=== PATIENT | female | born 1960 | race Caucasian/White ===

== ENCOUNTER → 2022-02-20 09:51 | Outpatient (CLI) | payer BC, SELFPAY ==
--- NOTE | ~2022-02-20 | MR_ITS ---
EXAMINATION: MR lumbar spine wo con DATE: 02/20/2022 10:25 INDICATION: Low back pain. Lumbar degenerative disc disease. TECHNIQUE: Magnetic resonance imaging (MRI) of the lumbar spine was performed without intravenous con trast. Sequences included sagittal T2-weighted FSE, sagittal T2-weighted FS FSE, sagittal T1-weighted FSE, and axial T2-weighted FSE. COMPARISON: None FINDINGS: Bone alignment is normal. Vertebral body heights are normal. There is mildly decreased disc height at L2-L3 and L3-L4 and moderately decreased disc height at L4-L5. The distal spinal cord sign al intensity is normal. The conus medullaris is at L1. The following disc levels are specifically dis cussed: L1-L2: The disc does not extend beyond the endplate margin. There is mild bilateral facet joint osteo arthritis. There is no neural foraminal stenosis. There is no central canal stenosis. L2-L3: The disc is bulging and has an annular fissure. There is mild bilateral facet joint osteoarthr itis. There is mild bilateral neural foraminal stenosis. There is mild central canal stenosis. L3-L4: The disc is bulging and has an annular fissure. There is moderate right and severe left facet joint osteoarthritis. There is mild bilateral neural foraminal stenosis. There is mild central canal stenosis. L4-L5: The disc is bulging. There is mild bilateral facet joint osteoarthritis. There is mild bilater al neural foraminal stenosis. There is mild central canal stenosis. L5-S1: The disc does not extend beyond the endplate margin. There is mild bilateral facet joint osteo arthritis. There is no neural foraminal stenosis. There is no central canal stenosis. IMPRESSION: 1. Moderate lumbar spondylosis. Reviewed, dictated and finalized at location A.
== END ==
PROVIDERS: Visit Provider Physician Assistant
DX: M51.36 Other intervertebral disc degeneration, lumbar region (principal); M47.27 Other spondylosis with radiculopathy, lumbosacral region; M48.07 Spinal stenosis, lumbosacral region
CPT/HCPCS: 72148

== ENCOUNTER 2022-03-02 09:41 | Emergency (ER) | payer BC, SELFPAY ==
--- NOTE | ~2022-03-02 | CT_ITS ---
EXAMINATION: CT abdomen pelvis w con DATE: 03/02/2022 11:06 INDICATION: Right lower quadrant abdominal pain. Low back pain. Diarrhea. TECHNIQUE: Computed tomography (CT) of the abdomen and pelvis was performed with 100 mL Omnipaque 350 intravenous contrast. Automated exposure control and iterative reconstruction technique were employe d. The dose-length product was 236.31 mGy-cm. COMPARISON: None. FINDINGS: The visualized portions of the lung bases demonstrate mild atelectasis. No pleural effusion . The heart size is normal. No pericardial effusion. There are 2 cysts in the liver measuring up to 5 mm. The gallbladder, spleen, pancreas, adrenal glands, and right kidney are normal. There is a 4 mm cyst in left kidney. The rectum is distended, likely adynamic ileus. There is liquid stool in the col on correlating with the symptom of diarrhea. The appendix is normal. The terminal ileum is normal. Th ere are no pathologically enlarged lymph nodes. There is no free intraperitoneal fluid. There is mild lumbar spondylosis. IMPRESSION: 1. Distended rectum, likely adynamic ileus. Reviewed, dictated and finalized at location A.
[2022-03-02 09:42] VITALS: BP 125/85; PULSE 91; RESP 18; TEMP 36.3; O2SAT 99
--- NOTE | 2022-03-02 09:58 | ED.BACK ---
HPI - Back Pain/Injury General Chief Complaint: Back Pain/Injury <Tegan Laguna PA-C - Last Filed: 03/02/22 12:47> Stated Complaint: lower back pain, right side groin pain <RITO Mcgarry Last Filed: 03/02/22 12:47> Time Seen by Provider: 03/02/22 09:50 <RITO Mcgarry Last Filed: 03/02/22 12:47> Source: patient <RITO Mcgarry Last Filed: 03/02/22 12:47> Mode of arrival: ambulatory <RITO Mcgarry Last Filed: 03/02/22 12:47> Limitations: no limitations <RITO Mcgarry Last Filed: 03/02/22 12:47> History of Present Illness HPI Narrative: This is a 61-year-old female that presents to the emergency department for feeling generally unwell. Reports she has not been feeling good last couple of weeks. Reports she has had low back pain and right lower quadrant pain. She also reports she has had nausea and diarrhea. Reports history of ulcerative colitis. She follows with a structural iron worker at [facility]. Denies any recent injuries or trauma. No alleviating or exacerbating factors. Reports she was seen at urgent care a couple of days ago. She was started on cefdinir. Her culture ended up coming back negative though, so she has stopped this antibiotic. Denies fever, vomiting, dysuria, hematuria. <Tegan Laguna PA-C - Last Filed: 03/02/22 12:47> Related Data Allergies/Adverse Reactions: Allergies Allergy/AdvReac Type Severity Reaction Status Date / Time No Known Allergies Allergy Verified 03/02/22 11:20 <RITO Mcgarry Last Filed: 03/02/22 12:47> Review of Systems Review of Systems: CONSTITUTIONAL: Denies fever GASTROINTESTINAL: Reports abdominal pain, nausea, and diarrhea. Denies vomiting GENITOURINARY: Denies dysuria or hematuria. <RITO Mcgarry Last Filed: 03/02/22 12:47> All systems reviewed & are unremarkable except as noted in HPI and below <Tegan Laguna PA-C - Last Filed: 03/02/22 12:47> PMFSH Past Medical History Medical History: Medical History (Updated 03/02/22 @ 12:41 by Tegan Laguna PA-C) History of fibromyalgia History of ulcerative colitis <Tegan Laguna PA-C - Last Filed: 03/02/22 12:47> Social History Social History: Social History (Updated 03/02/22 @ 10:00 by Tegan Laguna PA-C) Smoking status: Former smoker Substance use: never <Tegan Laguna PA-C - Last Filed: 03/02/22 12:47> Exam Narrative: GENERAL: Well-appearing, well-nourished, and in no acute distress. HEAD: Normocephalic, atraumatic. EYES: EOMI. CHEST: Clear to auscultation. No respiratory distress. No wheezes rales or rhonchi HEART: Regular rate and rhythm. No murmur heard. Normal peripheral pulses. ABDOMEN: Soft, nondistended, normal active bowel sounds. Mild tenderness to palpation throughout the lower abdomen, without guarding. No CVA tenderness EXTREMITIES: Normal range of motion. No edema. SKIN: Warm, dry, no rash. NEURO: No focal deficits. Alert and oriented x3. PSYCH: Normal mood and affect <Tegan Laguna PA-C - Last Filed: 03/02/22 12:47> Course MANAGER FRENCH/PA Physician Supervision For this patient encounter, I reviewed the MANAGER FRENCH or PA documentation, treatment plan, and medical decision making <Franck Booker MD - Last Filed: 03/02/22 13:44> Vital Signs Vital signs: Vital Signs Temperature 97.3 F L 03/02/22 09:42 Pulse Rate 91 03/02/22 09:42 Respiratory Rate 18 03/02/22 09:42 Blood Pressure 125/85 03/02/22 09:42 Pulse Oximetry 99 03/02/22 09:42 Oxygen Delivery Room Air 03/02/22 09:42 Temperature 97.3 F L 03/02/22 09:42 Pulse Rate 91 03/02/22 09:42 Respiratory Rate 18 03/02/22 09:42 Blood Pressure 125/85 03/02/22 09:42 Pulse Oximetry 99 1015/22 09:42 Oxygen Delivery Room Air 03/02/22 09:42 <Tegan Laguna PA-C - Last Filed: 03/02/22 12:47> Vital Signs Temperature 97.3 F L 03/02/22 09:42 Pulse Rate 91 10
[2022-03-02 10:25] LABS: Basophils Percent Auto 0.3 % (0.2-1.2); Eosinophils Absolute Auto 0.1 K/mm3 (0-0.3); Eosinophils Percent Auto 0.9 % (0-4.4); Hematocrit 43.5 % (37.0-47.0); Hemoglobin 14.9 g/dL (12.0-15.0); Immature Granulocyte Absolute 0.02 K/mm3 (0.00-0.031); Immature Granulocyte Percent A 0.2 % (0-0.5); Mean Corpuscular HGB Conc 34.3 g/dl (32-36); Mean Corpuscular Volume 96.2 fl (80-100); Mean Platelet Volume 9.8 fl (7.4-10.4); Monocytes Absolute Auto 0.7 K/mm3 (0.1-0.6); Monocytes Percent Auto 7.4 % (2.6-8.5); Neutrophils Absolute Auto 8.3 K/mm3 (1.3-6.7); Neutrophils Percent Auto 83.2 % (45.5-73.1); Platelet Count Result 312 k/mm3 (150-375); Red Blood Count 4.52 M/mm3 (4.2-5.4); Red Cell Distribution Width 12.5 % (11.5-14.5); White Blood Count 9.9 K/mm3 (4.5-10.0)
[2022-03-02 10:33] LABS: Add Urine Microscopic? YES; Appearance Urine Cloudy (Clear); Bilirubin Urine Negative (Negative); Blood Urine Negative (Negative); Budding Yeast Urine Present /hpf; Calcium Oxalate Crystals Urine Present /hpf; Color Urine Yellow (Yellow); Glucose Urine UA Negative (Negative); Ketones Urine Trace mg/dL (Negative); Leukocyte Esterase Ur Negative LEU/UL (Negative); Mucus Urine Rare /lpf; Nitrate Urine Negative (Negative); Protein Urine Negative (Negative); RBC Urine 51-75 /hpf (0-2); Specific Grav Ur 1.018 (1.001-1.035); Squamous Epithelial Cell Urine Rare /hpf (Few); Urobilinogen Urine Negative mg/dL (<2.0)
[2022-03-02 10:37] LABS: Alanine Aminotransferase 35 U/L (6-35); Albumin Level 4.6 g/dL (3.5-5.1); Alkaline Phosphatase 68 U/L (38-126); Anion Gap 8 mmol/L (8-16); Aspartate Amino Transferase 37 U/L (14-36); Bilirubin,Total 0.5 mg/dL (0.2-1.3); Blood Urea Nitrogen 11 mg/dL (7-17); Calcium 9.8 mg/dL (8.4-10.2); Carbon Dioxide 28 mmol/L (22-30); Chloride 102 mmol/L (98-107); Estimated CRCL calculation 51 ml/min; Estimated Glomerular Filt Rate > 60; Glucose 96 mg/dL (65-110); Lipase 108 U/L (23-300); Potassium 4.2 mmol/L (3.4-5.0); Sodium 138 mmol/L (137-145)
[2022-03-02] MEDS: ONDANSETRON INJ 4 MG/2 ML VIAL IV PUSH (10:54)
[2022-03-02] MEDS: KETOROLAC 15 MG/ML VIAL (*BKC) IV PUSH (11:43)
[2022-03-02] MEDS: FLUCONAZOLE 150 MG TABLET PO (13:12)
== END 2022-03-02 13:17 | disposition home or self-care (01) ==
PROVIDERS: Physician Assistant; Emergency Provider Emergency Medicine
DX: K56.0 Paralytic ileus (principal)
CPT/HCPCS: 36415; 74177; 80053; 81001; 83690; 85025; 87086; 96365; 96375; 99284; A9270; J0131; J1885; J2405; Q9967

== ENCOUNTER → 2023-02-12 11:02 | Outpatient (CLI) | payer BC, SELFPAY ==
--- NOTE | ~2023-02-12 | XR_ITS ---
EXAMINATION: XR hip BI 2V w AP pelvis DATE: 02/12/2023 11:47 INDICATION: Bilateral hip pain TECHNIQUE: AP view the pelvis and two views of each hip were obtained. COMPARISON: None. FINDINGS: Bone alignment is normal. There is no fracture. There is mild osteoarthritis of the left hi p and moderate osteoarthritis of the right hip. IMPRESSION: 1. Osteoarthritis without acute osseous abnormality. Reviewed, dictated and finalized at location F.
== END ==
PROVIDERS: PCP Physician Assistant; Visit Provider Physician Assistant
DX: M16.0 Bilateral primary osteoarthritis of hip (principal)
CPT/HCPCS: 73521

== ENCOUNTER 2024-12-11 09:52 | Outpatient (CLI) | payer MEDICARE, SELFPAY ==
--- NOTE | ~2024-12-11 | MR_ITS ---
MRI of the cervical spine Clinical History: Degenerative disc disease Technique: Axial T2-weighted and gradient images, and sagittal T1-weighted, T2-weighted, and STIR megha ges were acquired. Findings: There is no fracture or subluxation of the cervical spine. Vertebral bodies maintain normal height and line. No bone marrow signal abnormality seen. C2-C3, there is mild left neural foraminal narrowing related to left facet arthropathy. No right neur al foraminal narrowing. No significant disc bulge or herniation. No canal stenosis or cord compressio n. At C3-C4, there is left facet arthropathy with probable left neural foraminal narrowing. Otherwise, t here is no disc bulge or herniation, spinal canal stenosis or cord compression, or right neural kelsy inal narrowing. At C4-C5, there is minimal disc osteophyte complex. Probable mild left neural foraminal narrowing wit h mild left facet arthropathy. Right neural foramen preserved. No canal stenosis or cord compression. At C5-C6, there is minimal disc osteophyte complex. There is bilateral neural foraminal narrowing, le ft worse than right. There is mild canal stenosis without maru cord compression. At C6-C7, there is no disc bulge or herniation. No spinal canal stenosis, cord compression, or neural foraminal narrowing. No abnormal signal seen in the spinal cord. Paravertebral soft tissues are unremarkable. Impression: Mild degenerative spondylosis overall, as detailed above. Reviewed, dictated and finalized at [facility]. Impression: Mild degenerative spondylosis overall, as detailed above.
== END 2024-12-11 09:53 | disposition home or self-care (01) ==
PROVIDERS: PCP Physician Assistant; Visit Provider Physician Assistant
DX: M50.30 Other cervical disc degeneration, unspecified cervical region (principal); R29.2 Abnormal reflex; M47.892 Other spondylosis, cervical region
CPT/HCPCS: 72141

== ENCOUNTER 2025-02-08 08:50 | Outpatient (CLI) | payer MEDICARE, SELFPAY ==
--- OUTSIDE RECORDS SUMMARY | 2025-02-08 09:19 | XMS_ITS | Clinical Summary ---
Author Organization [facility] Address [address] [place] [address] Care Team Providers Care Wrapping Checker Name Role Phone True Howell DO Primary Care Provider + Source Comments [facility],non-owned Affiliates and Associated Physician Practices is amultiple site organization consisting of ambulatory clinics and hospital sitesin [place], [place], [place] and [place]. This disclosure is being madepursuant to the Care Everywhere program and may not contain all information available regarding this patient. Last updated 18.[facility] [place] Social History Tobacco Use Types Packs/Day Years Used Date Smoking Tobacco: Never Assessed Comments Unknown Sex and Gender Information Value Date Recorded Sex Assigned at Not on file Legal Sex Female 9:06 AM TIE IN HAND Gender Identity Not on file Sexual Orientation Not on file Last Filed Vital Signs Vital Sign Reading Time Taken Comments Blood Pressure 124/76 04/05/2013 8:09 AM TIE IN HAND Pulse 79 04/05/2013 8:09 AM TIE IN HAND Temperature 37.4 C (99.4 F) 04/05/2013 8:09 AM TIE IN HAND Respiratory Rate 22 04/05/2013 8:09 AM TIE IN HAND Oxygen Saturation 97% 04/05/2013 8:09 AM TIE IN HAND Inhaled Oxygen Concentration - - Weight 59.9 kg (132 lb) 04/05/2013 8:09 AM TIE IN HAND Height - - Body Mass Index - - Plan of Treatment Health Maintenance Due Date Last Done Comments BONE DENSITY TESTING 1960 COLOGUARD (AGES 45-75) - COL ON CA SCREENING 1958 COLON MONITORING 1958 COLONOSCOPY - COLON CA SCREENING 1958 CT COLONOGRAPHY - COLON CA SCREENING 1960 Colorectal Cancer Screening 1958 FIT - COLON CA SCREENING 1958 FLEX SIG - COLON CA SCREENING 1958 LIPID TESTING 1958 MAMMOGRAM 1958 HEPATITIS C SCREENING 07/13/1976 DTAP/TDAP/TD VACCINES (1 - Tdap) 1977 PNEUMOCOCCAL VACCINE 50+ (1 of 1 - PCV) 2008 ZOSTER VACCINE (1 of 2) 2008 DEPRESSION SCREENING 05/19/2024 COVID-19 VACCINE (1 - 2023-2 5 season) 2025 INFLUENZA VACCINE (#1) 2025 04/05/2013 Respiratory Syncytial Virus (RSV) Vaccine Pt: or over 60 yrs (1 - 1-dose 75+ series) 2033 HEPATITIS B VACCINE Aged Out No longe r eligible based on patient's age to complete this topic HIB VACCINE Aged Out No longer eligi ble based on patient's age to complete this topic HPV VACCINE Aged Out No longer eligi ble based on patient's age to complete this topic MENINGOCOCCAL (Group B) VACC INE SHARED DECISION-MAKING Aged Out No longer eligibl e based on patient's age to complete this topic MENINGOCOCCAL GROUPS A/C/Y/W VACCINE Aged Out No longer eligible b ased on patient's age to complete this topic Insurance [employer]THE[employer] Care Teams Wrapping Checker Relationship Specialty Start Date End Date True Howell DO [address] [address] PCP - General 05/09/21
--- OUTSIDE RECORDS SUMMARY | 2025-02-08 09:19 | XMS_ITS | Encounter Summary ---
Author Organization [facility] Address [address] [place] [address] Care Team Providers Care Hvac/R Instructor Name Role Phone True Howell DO Primary Care Provider + Encounter Details Date Type Department Care Team (Late st Contact Info) Description 07/16/2023 Lab Requisition [facility] - DermPath Lab [address] [place] [address] [place] [id number] [address] Social History Tobacco Use Types Packs/Day Years Used Date Smoking Tobacco: Never Assessed Comments Unknown Sex and Gender Information Value Date Recorded Sex Assigned at Not on file Legal Sex Female 9:06 AM MEDICAL DOCTOR MD/MEDICAL DIRECTOR Gender Identity Not on file Sexual Orientation Not on file documented as of this encounter Plan of Treatment Not on file documented as of this encounter Procedures Procedure Name Priority Date/Time Associated Diagnosis Comments DERMATOPATHOLOGY Routine 07/15/2023 3:33 AM MEDICAL DOCTOR MD/MEDICAL DIRECTOR documented in this encounter Results * DERMATOPATHOLOGY (07/15/2023 3:33 AM MEDICAL DOCTOR MD/MEDICAL DIRECTOR) Case Report Dermatopathology Report Case: [id number] Authorizing Provider: Yamilet Chapman MD Collected: 07/15/2023 03:33 AM Ordering Location: [facility] DermPath Lab Received: 07/16/2023 01:08 PM Pathologist: Tegan Dash MD Specimen: Skin, right upper back 2:05 PM [facility] DERMATOPATHOLOGY LABORATORY Final Diagnosis Specimen A. SKIN, right upper back: DERMAL SCAR RESIDUAL SQUAMOUS CELL CARCINOMA NOT IDENTIFIED (L90.5) 2:05 PM [facility] DERMATOPATHOLOGY LABORATORY at [address] [facility] Clinical History Scar r/o SCC. Check margins, prior biopsy 2:05 PM [facility] DERMATOPATHOLOGY LABORATORY Gross Description Specimen A: Received is one formalin filled container labeled with the patient's name and designated right upper back.The specimen consists of an ellipse measuring [id number] mm and is oriented with the suture/notch at the 12 o'clock position labeled on the requisition. The 12 to 6 o'clock margin is inked green. The 6 o'clock to 12 o'clock margin is inked red. The 12 o'clock tip is submitted in cassette 1. The 6 o'clock tip is submitted in cassette 2. The remainder of the ellipse is serially sectioned and submitted in cassettes 3-4. Jar 0. 2:05 PM [facility] DERMATOPATHOLOGY LABORATORY Microscopic Description Specimen A. SKIN, right upper back: There are fibroblasts and collagen bundles oriented parallel to the skin surface. There are elongated blood vessels, some of which are oriented perpendicular to the skin surface. No residual squamous cell carcinoma is identified. 2:05 PM [facility] DERMATOPATHOLOGY LABORATORY Disclaimer An external and internal positive and negative controls are appropriate for the histochemical, immunohistochemical and immunofluorescence stain(s) in this case (if any), except where stated explicitly. The performance characteristics of the stain(s) cited in this report were developed and its performance characteristic determined by the Dermatopathology Laboratory at [facility], directed by Dr. June Daigle. These tests need not be, and therefore are not, approved by the [place] Food and Drug Administration. The tests are used for clinical purposes. Billing Codes Specimen Charges Stain Charges 58997 1 2:05 PM [facility] DERMATOPATHOLOGY LABORATORY Embedded Images 2:05 PM [facility] DERMATOPATHOLOGY LABORATORY Pathology/Cytolo gy TISSUE SPECIMEN FROM SKIN / Unknown 07/15/2023 3:33 AM MEDICAL DOCTOR MD/MEDICAL DIRECTOR 07/16/2023 1:08 PM MEDICAL DOCTOR MD/MEDICAL DIRECTOR us Yamilet Harris MD LAB - PATHOLOGY/CYTOLOGY ORDER BRITT Final Result DERMATOPATHOLOGY LABORATORY [facility] - Department of Dermatology [facility] Special[facility] [address] [place] [address], [address] [phone] documented in this encounter Visit Diagnoses Not on filedocumented in this encounter Care Teams Hvac/R Instructor Relationship Specialty Start Date End Date True Howell DO [address] [facility] [address] [place] [address] PCP - General 05/09/21 documented as of this encounter
--- OUTSIDE RECORDS SUMMARY | 2025-02-08 09:19 | XMS_ITS | Encounter Summary ---
Author Organization [facility] Address [address] [place] [address] Care Team Providers Care Photographic Equipment Mechanic Name Role Phone True Howell DO Primary Care Provider + Encounter Details Date Type Department Care Team (Late st Contact Info) Description 05/09/2021 Lab Requisition [facility] Care DermPath Lab [address] [facility] [place] [address] [place] [id number] [address] Social History Tobacco Use Types Packs/Day Years Used Date Smoking Tobacco: Never Assessed Comments Unknown Sex and Gender Information Value Date Recorded Sex Assigned at Not on file Legal Sex Female 9:06 AM FULL STACK SOFTWARE ENGINEER Gender Identity Not on file Sexual Orientation Not on file documented as of this encounter Plan of Treatment Not on file documented as of this encounter Procedures Procedure Name Priority Date/Time Associated Diagnosis Comments DERMATOPATHOLOGY Routine 05/09/2021 12:0 0 AM FULL STACK SOFTWARE ENGINEER documented in this encounter Results * DERMATOPATHOLOGY (05/09/2021 12:00 AM FULL STACK SOFTWARE ENGINEER) Case Report Dermatopathology Report Case: [id number] Authorizing Provider: Yamilet Chapman MD Collected: 05/09/2021 12:00 AM Ordering Location: [facility] Derm[facility] Lab Received: 05/09/2021 01:24 PM Pathologist: Isabella Dash MD Specimens: A) - Skin, right pop lateral B) - Skin, right pop medial 3:15 PM [facility] DERMATOPATHOLOGY LABORATORY Final Diagnosis Specimen A. 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 SKIN, right pop medial: LICHEN SIMPLEX CHRONICUS (L28.0) (see microscopic description and comment) 3:15 PM [facility] DERMATOPATHOLOGY LABORATORY at [address] FULL STACK SOFTWARE ENGINEER Clinical History A-B: LSC, PSO, porokeratosis R/O syringotropic MF. 3:15 PM [facility] DERMATOPATHOLOGY LABORATORY Gross Description Specimen A: Received is one formalin filled container labeled with the patient's name and designated right pop lateral. The specimen consists of a shave biopsy measuring [id number]. Jar 0. Specimen B: Received is one formalin filled container labeled with the patient's name and designated right pop medial. The specimen consists of a shave biopsy measuring [id number], bisected. Jar 0. 3:15 PM [facility] DERMATOPATHOLOGY LABORATORY Microscopic Description Specimen A. SKIN, right pop lateral: Sections show acanthosis, hypergranulosis, and hyperkeratosis. The papillary dermis is fibrotic. The hematoxylin and eosin stain is reviewed; immunohistochemical stains are performed to further assess the histologic features. CD3 highlights rare T cells, composed of both rare CD4+ and rare CD8+ T cells. Grocott's methenamine silver (GMS) stain fails to highlight fungal elements in the available sections. Additional deeper sections were obtained and reviewed. COMMENT (specimens A and B): The histologic features are similar in specimens A and B, and are most consistent with lichen simplex chronicus. The lack of a more significant lymphoid infiltrate as well as the immunophenotype of the lymphoid infiltrate does not support a diagnosis of mycosis fungoides. However, if there is continued clinical concern for mycosis fungoides consideration should be given to a re biopsy of a sun protected area that has not been treated for two to three weeks. Specimen B. SKIN, right pop medial: Sections show acanthosis, hypergranulosis, and hyperkeratosis. The papillary dermis is fibrotic. The hematoxylin and eosin stain is reviewed; immunohistochemical stains are performed to further assess the histologic features. CD3 highlights scattered T cells, that show a CD4:CD8 ratio of approximately 3:1. Grocott's methenamine silver (GMS) stain fails to highlight fungal elements in the available sections. Additional deeper sections were obtained and reviewed. COMMENT: See comment in specimen A. 1 3:15 PM FULL STACK SOFTWARE ENGINEER DERMATOPATHOLOGY LABORATORY Disclaimer An external and internal positive and negative controls are appropriate for the histochemical, immunohistochemical and immunofluorescence stain(s) in this case (if any), except where stated explicitly. The performance characteristics of the stain(s) cited in this report were developed and its performance characteristic determined by the Dermatopathology Laboratory at [facility], directed by Dr. June Daigle. These tests need not be, and therefore are not, approved by the [place] Food and Drug Administration. The tests are used for clinical purposes. Billing Codes Specimen Charges Stain Charges 84521 41728 1 1 [id number] [id number] 26376 54943 59131 09465 10419 96996 1 1 1 1 1 1 1 1 1 3:15 PM FULL STACK SOFTWARE ENGINEER DERMATOPATHOLOGY LABORATORY Embedded Images 1 3:15 PM FULL STACK SOFTWARE ENGINEER DERMATOPATHOLOGY LABORATORY Pathology/Cytology TISSUE SPECIMEN FROM SKIN / Unknown 05/09/2021 05/09/2021 1:24 PM FULL STACK SOFTWARE ENGINEER Miscellaneous samples (specimen) TISSUE SPECIMEN FROM SKIN / Unknown 05/09/2021 05/09/2021 1:24 PM FULL STACK SOFTWARE ENGINEER us Yamilet Harris MD LAB - PATHOLOGY/CYTOLOGY ORDER BRITT Final Result DERMATOPATHOLOGY LABORATORY [facility] - Department of Dermatology [facility] [facility], [address] [place] [address], [facility] [phone] documented in this encounter Visit Diagnoses Not on filedocumented in this encounter Care Teams Photographic Equipment Mechanic Relationship Specialty Start Date End Date True Howell DO [address] [facility] [address] [place] [phone] (work) PCP - General 05/09/21 documented as of this encounter
--- OUTSIDE RECORDS SUMMARY | 2025-02-08 09:19 | XMS_ITS | Encounter Summary ---
Author Organization [facility] Address [address] [place] [address] Care Team Providers Care Trash Collector Name Role Phone True Howell DO Primary Care Provider + Encounter Details Date Type Department Care Team (Late st Contact Info) Description 05/05/[address] [facility] - DermPath Lab [address] [facility] [place] [address] [place] [id number] [address] Social History Tobacco Use Types Packs/Day Years Used Date Smoking Tobacco: Never Assessed Comments Unknown Sex and Gender Information Value Date Recorded Sex Assigned at Not on file Legal Sex Female 9:06 AM [employer] Gender Identity Not on file Sexual Orientation Not on file documented as of this encounter Plan of Treatment Not on file documented as of this encounter Procedures Procedure Name Priority Date/Time Associated Diagnosis Comments DERMATOPATHOLOGY Routine 05/05/2023 3:33 AM [employer] documented in this encounter Results * DERMATOPATHOLOGY (05/05/2023 3:33 AM [employer] A[employer]ST) Case Report Dermatopathology Report Case: [id number] Authorizing Provider: Yamilet Chapman MD Collected: 05/05/2023 03:33 AM Ordering Location: [facility] Received: 05/05/2023 01:20 PM Pathologist: Henny Carpenter MD Specimens: A) - Skin, right medial pop B) - Skin, right upper back 3 4:46 PM [facility] DERMAT[facility]ATH[facility] Final Diagnosis Specimen A. 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 SKIN, right upper back: SQUAMOUS CELL CARCINOMA, WELL DIFFERENTIATED (C44.529) 3 4:46 PM [facility] DERMATOPATHOLOGY [facility]ORAT[facility] at 1646 [employer] Clinical History A: Lentigo R/O Atypia B: PN R/O SCC 3 4:46 PM [facility]ERMATOPATH[facility] Gross Description Specimen A: Received is one formalin filled container labeled with the patient's name and designated right medial pop. The specimen consists of a shave biopsy measuring [id number] mm. Jar 0. Specimen B: Received is one formalin filled container labeled with the patient's name and designated right upper back. The specimen consists of a shave biopsy measuring 13x9x1 mm. Jar 0. 3 4:46 PM [facility]ERMATOPATH[facility] Microscopic Description Specimen A. SKIN, right medial pop: The epidermis shows parakeratosis, full thickness disorderly maturation of keratinocytes, mitoses at different levels, and dyskeratotic cells. There is prominent pigmentation in some of the keratinocytes. Ki-67 immunohistochemical stain reveals a elevated proliferative index throughout the epidermis. MART-1/Melan-A immunohistochemical stain fails to highlight a melanocytic proliferation. Specimen B. SKIN, right upper back: Arising in the epidermis and extending into the dermis there are irregularly shaped aggregates of keratinocytes showing evidence of premature cornification. Additional deeper sections were obtained and reviewed. 3 4:46 PM [facility]ERMATOPATH[facility]Y [facility] Disclaimer An external and internal positive and negative controls are appropriate for the histochemical, immunohistochemical and immunofluorescence stain(s) in this case (if any), except where stated explicitly. The performance characteristics of the stain(s) cited in this report were developed and its performance characteristic determined by the Dermatopathology Laboratory at [facility], directed by Dr. June Daigle. These tests need not be, and therefore are not, approved by the [place] Food and Drug Administration. The tests are used for clinical purposes. Billing Codes Specimen Charges Stain Charges 79438 61304 1 1 24426 21016 1 1 3 4:46 PM [employer] DERMATOPATHOLOGY LABORATORY Embedded Images 3 4:46 PM [employer] DERMATOPATHOLOGY LABORATORY Pathology/Cytology TISSUE SPECIMEN FROM SKIN / Unknown 05/05/2023 3:33 AM [employer] 05/05/2023 1:20 PM [employer] Miscellaneous samples (specimen) TISSUE SPECIMEN FROM SKIN / Unknown 05/05/2023 3:33 AM [employer]ST 05/05/2023 1:20 PM [employer] Yamilet Harris MD LAB - PATHOLOGY/CYTOLOGY ORDER BRITT Final Result DERMATOPATHOLOGY LABORATORY [facility] - Department of Dermatology [facility] [address] [place] [address], [address] [phone] documented in this encounter Visit Diagnoses Not on filedocumented in this encounter Care Teams Trash Collector Relationship Specialty Start Date End Date True Howell DO [address] [facility] [address] [place] [address] PCP - General 05/09/21 documented as of this encounter
--- OUTSIDE RECORDS SUMMARY | 2025-02-08 09:20 | XMS_ITS | Clinical Summary ---
Author Organization [facility] [address] 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 Role Phone Antonieta Cazares MD Primary Care Provider [phone] Mane MILLER MD, Mynor Marin Unavailable [phone] Eleanor Longoria MD Unavailable Allergies No known active allergies Medications ALPRAZolam (XANAX) 0.5 mg tablet TAKE 1 TABLET BY MOUTH 2 TIMES DAILY NEEDED FOR ANXIETY 5 11/23/2018 Active mesalamine (CANASA) 1,000 mg suppository Insert 1,000 mg into the rectum daily 07/17/2018 Active oxyCODONE (ROXICODONE) 15 mg immediate release tablet TK ONE T PO BID 0 12/04/2018 Active oxyCODONE ER (OxyCONTIN) 20 mg 12 hr abuse-deterrent tablet TK 1 T PO BID 05/06/2018 Active tofacitinib (Xeljanz) 10 mg tablet Take 1 tablet by mouth 2 (two) times a day 12/08/2020 Active busPIRone (BUSPAR) 15 mg tablet Take 15 mg by mouth 2 (two) times a day 02/20/2021 Active Active Problems Problem Noted Date Diagnosed Date Right hip pain 03/11/2022 Assessment & Plan (03/11/2022 10:25 AM CDT): C/o recent pain in R hip exacerbated by weight bearing and walking. She notes pain originates in the R low back/SI and wraps around her outer hip and into the inguinal region. No pain with passive ROM of the hip joint and pain is alleviated with offloading the joint. Had MRI of lumbar spine recently and is getting LESI 04/03. Recommend f/u with PM for further evaluation. Cervical radiculopathy 09/20/2020 Assessment & Plan (07/11/2021 12:22 PM HAND BOOTMAKER): MRI cervical spine (02/2020) showed severe bilateral foraminal stenosis. Failed spinal injections, PT, and pain management. Pain management recommends f/u with surgeon for surgical opinion. Saw surgeon who repeated MRI 12/2020 that showed nerve impingement at C6 (L>R) due to foraminal stenosis. Neurosurgeon recommended PT which provided significant relief of patient's symptoms. Continue home exercises. Assessment & Plan (06/05/2021 12:29 PM HAND BOOTMAKER): MRI cervical spine (02/2020) showed severe bilateral foraminal stenosis. Failed spinal injections, PT, and pain management. Pain management recommends f/u with surgeon for surgical opinion. Saw surgeon who repeated MRI 12/2020 that showed nerve impingement at C6 (L>R) due to foraminal stenosis. Neurosurgeon recommended PT which provided significant relief of patient's symptoms. Continue home exercises. Assessment & Plan (03/06/2021 10:00 AM CDT): MRI cervical spine (02/2020) showed severe bilateral foraminal stenosis. Failed spinal injections, PT, and pain management. Pain management recommends f/u with surgeon for surgical opinion. Saw surgeon who repeated MRI 12/2020 that showed nerve impingement at C6 (L>R) due to foraminal stenosis. Neurosurgeon recommended PT and patient started this last week and reports significant benefit. Assessment & Plan (01/24/2021 2:42 PM CDT): MRI cervical spine (02/2020) showed severe bilateral foraminal stenosis. Failed spinal injections, PT, and pain management. Pain management recommends f/u with surgeon for surgical opinion. Saw surgeon who repeated MRI 12/2020 that showed nerve impingement at C6 (L>R) due to foraminal stenosis. Has f/u on 02/22/21 with surgeon to discuss treatment options. Assessment & Plan (09/20/2020 9:37 AM CDT): MRI cervical spine (02/2020) showed severe bilateral foraminal stenosis. Failed spinal injections, PT, and pain management. Pain management recommends f/u with surgeon for surgical opinion. Gave patient name of neurosurgeon Dr. Vanegas. She will discuss with pcp about referral as well. Wanting to wait to do anything until her colitis is controlled. 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 1st Shingrix vaccine 09/14/20 Assessment & Plan (07/11/2021 12:22 PM HAND BOOTMAKER): Hepatitis negative: Quantiferon negative: 01/2019 CXR negative: 07/2018 UTD flu shot. 1st Shingrix vaccine 09/14/20 Assessment & Plan (06/05/2021 12:24 PM HAND BOOTMAKER): Hepatitis negative: Quantiferon negative: 01/2019 CXR negative: 07/2018 UTD flu shot. 1st Shingrix vaccine 09/14/20 Assessment & Plan (03/06/2021 9:35 AM CDT): Hepatitis negative: Quantiferon negative: 01/2019 CXR negative: 07/2018 UTD flu shot. 1st Shingrix vaccine 09/14/20 Assessment & Plan (01/24/2021 2:42 PM CDT): Hepatitis negative: Quantiferon negative: 01/2019 CXR negative: 07/2018 UTD flu shot. 1st Shingrix vaccine 09/14/20 Assessment & Plan (09/20/2020 9:27 AM CDT): Hepatitis negative: Quantiferon negative: 01/2019 CXR negative: 07/2018 UTD flu shot. 1st Shingrix vaccine 09/14/20 Assessment & Plan (06/07/2020 9:03 AM HAND BOOTMAKER): Hepatitis negative: Quantiferon negative: 01/2019 CXR negative: 07/2018 UTD flu shot. Assessment & Plan (03/08/2020 9:07 AM CDT): Hepatitis negative: Quantiferon negative: 01/2019 CXR negative: 07/2018 UTD flu shot. Assessment & Plan (11/30/2019 12:39 PM CDT): Hepatitis negative: Quantiferon negative: 01/2019 CXR negative: 07/2018 UTD flu shot. Assessment & Plan (08/31/2019 10:17 AM CDT): Hepatitis negative: Quantiferon negative: 01/2019 CXR negative: 07/2018 UTD flu shot. Assessment & Plan (06/17/2019 10:24 AM HAND BOOTMAKER): Hepatitis negative: Quantiferon negative: 01/2019 CXR negative: 07/2018 UTD flu shot. Assessment & Plan (03/18/2019 10:58 AM CDT): Hepatitis negative: Quantiferon negative: 01/2019 CXR negative: 07/2018 UTD flu shot. Fibromyalgia 12/22/2018 Overview (12/25/2018): Xray SI jts (11/02/18): negative Xray L-spine (11/02/18): mild L2-3 and L4-5 degenerative changes MRI L-spine (11/10/18): very mild lumbar degenerative changes 07/08/18 Dr. Candido Herrmann - left common peroneal, superficial peroneal, and deep peroneal nerve decompression 12/16/17 Dr. Mynor Bonner - left tarsal tunnel syndrome (release), chronic plantar fasciosis (kenalog injection at enthesis) Assessment & Plan (03/10/2023 11:16 AM CDT): Prior FMS diagnosis in 1999. Has failed or has side effects to Cymbalta, Lyrica, Amitriptyline, and gabapentin. Currently follows with [facility] management ([facility] in [place], [place]. Currently treated with oxycodone and OxyContin as it gives some relief of her FMS. Reports generalized pain, fatigue, and difficulty sleeping. Continue to follow with pain management. Previously discussed possibility of TENS unit for more focal pain. Assessment & Plan (09/09/2022 11:18 AM CDT): Prior FMS diagnosis in 1999. Has failed or has side effects to Cymbalta, Lyrica, Amitriptyline, and gabapentin. Currently follows with [facility] management ([facility]) in [place], [place]. Currently treated with oxycodone and OxyContin as it gives some relief of her FMS. Reports generalized pain, fatigue, and difficulty sleeping. Continue to follow with pain management. Previously discussed possibility of TENS unit for more focal pain. Assessment & Plan (03/11/2022 10:12 AM CDT): Prior FMS diagnosis in 1999. Has failed or has side effects to Cymbalta, Lyrica, Amitriptyline, and gabapentin. Currently follows with [facility] management ([facility] in [place], [place]. Currently treated with oxycodone and OxyContin as it gives some relief of her FMS. Reports generalized pain, fatigue, and difficulty sleeping. Continue to follow with pain management. Previously discussed possibility of TENS unit for more focal pain. Assessment & Plan (11/13/2021 11:53 AM CDT): Prior FMS diagnosis in 1999. Has failed or has side effects to Cymbalta, Lyrica, Amitriptyline, and gabapentin. Currently follows with [facility] management ([facility] in [place], [place]. Currently treated with oxycodone and OxyContin as it gives some relief of her FMS. Reports generalized pain, fatigue, and difficulty sleeping. Continue to follow with pain management. Previously discussed possibility of TENS unit for more focal pain. Assessment & Plan (07/11/2021 12:25 PM HAND BOOTMAKER): Prior FMS diagnosis in 1999. Has failed or has side effects to Cymbalta, Lyrica, Amitriptyline, and gabapentin. Currently follows with [facility] management ([facility] in [place]. Currently treated with oxycodone and OxyContin as it gives some relief of her FMS. Reports generalized pain, fatigue, and difficulty sleeping. Continue to follow with pain management. Discussed possibility of TENS unit for more focal pain last visit. Assessment & Plan (06/05/2021 12:24 PM HAND BOOTMAKER): Prior FMS diagnosis in 1999. Has failed or has side effects to Cymbalta, Lyrica, Amitriptyline, and gabapentin. Currently follows with [facility] management ([facility] in [place]. Currently treated with oxycodone and OxyContin as it gives some relief of her FMS. Reports generalized pain, fatigue, and difficulty sleeping. Continue to follow with pain management. Discussed possibility of TENS unit for more focal pain and patient is going to look into this. Assessment & Plan (03/06/2021 10:04 AM CDT): Prior FMS diagnosis in 1999. Has failed or has side effects to Cymbalta, Lyrica, Amitriptyline, and gabapentin. Currently follows with [facility] management ([facility] in [place]. Currently treated with oxycodone and OxyContin as it gives some relief of her FMS. Reports generalized pain, fatigue, and difficulty sleeping. Continue to follow with pain management. Assessment & Plan (01/24/2021 2:42 PM CDT): Prior FMS diagnosis in 1999. Has failed or has side effects to Cymbalta, Lyrica, Amitriptyline, and gabapentin. Currently follows with [facility] management ([facility] in [place]. Currently treated with oxycodone and OxyContin as it gives some relief of her FMS. Reports generalized pain, fatigue, and difficulty sleeping. Continue to follow with pain management. Assessment & Plan (09/20/2020 9:33 AM CDT): Prior FMS diagnosis in 1999. Has failed or has side effects to Cymbalta, Lyrica, Amitriptyline, and gabapentin. Currently follows with [facility] management ([facility] in [place]. Currently treated with oxycodone and OxyContin as it gives some relief of her FMS. Reports generalized pain, fatigue, and difficulty sleeping. Continue to follow with pain management. Assessment & Plan (06/07/2020 9:27 AM HAND BOOTMAKER): Prior FMS diagnosis in 1999. Has failed or has side effects to Cymbalta, Lyrica, Amitriptyline, and gabapentin. Currently follows with [facility] management ([facility] in [place]. Currently treated with oxycodone and OxyContin as it gives some relief of her FMS. Reports generalized pain, fatigue, and difficulty sleeping. Continue to follow with pain management. Assessment & Plan (03/08/2020 12:45 PM CDT): Prior FMS diagnosis in 1999. Has failed or has side effects to Cymbalta, Lyrica, Amitriptyline, and gabapentin. Currently follows with [facility] management ([facility] in [place]. Currently treated with oxycodone and OxyContin as it gives some relief of her FMS. Reports generalized pain, fatigue, and difficulty sleeping. Continue to follow with pain management. Assessment & Plan (11/30/2019 12:40 PM CDT): Prior FMS diagnosis in 1999. Has failed or has side effects to Cymbalta, Lyrica, Amitriptyline, and gabapentin. Currently follows with [facility] management ([facility] in [place]. Currently treated with oxycodone and OxyContin as it gives some relief of her FMS. Reports generalized pain, fatigue, and difficulty sleeping. Continue to follow with pain management. Assessment & Plan (08/31/2019 10:18 AM CDT): Prior FMS diagnosis in 1999. Has failed or has side effects to Cymbalta, Lyrica, Amitriptyline, and gabapentin. Currently follows with [facility] management ([facility] in [place]. Currently treated with oxycodone and OxyContin as it gives some relief of her FMS. Reports generalized pain, fatigue, and difficulty sleeping. Continue to follow with pain management. Assessment & Plan (06/17/2019 10:24 AM HAND BOOTMAKER): Prior FMS diagnosis in 1999. Has failed or has side effects to Cymbalta, Lyrica, Amitriptyline, and gabapentin. Currently follows with [facility] management ([facility] in [place]. Currently treated with oxycodone and OxyContin as it gives some relief of her FMS. Reports generalized pain, fatigue, and difficulty sleeping. Continue to follow with pain management. Assessment & Plan (03/18/2019 10:17 AM CDT): Prior FMS diagnosis in 1999. Has failed or has side effects to Cymbalta, Lyrica, Amitriptyline, and gabapentin. Currently follows with [facility] management ([facility] in [place]. Currently treated with oxycodone and OxyContin as it gives some relief of her FMS. Reports generalized pain, fatigue, and difficulty sleeping. Continue to follow with pain management. Assessment & Plan (02/04/2019 12:34 PM CDT): Prior FMS diagnosis in 1999. Has failed or has side effects to Cymbalta, Lyrica, Amitriptyline, and gabapentin. Currently follows with [facility] management ([facility] in [place]. Currently treated with oxycodone and OxyContin as it gives some relief of her FMS. Reports generalized pain, fatigue, and difficulty sleeping. Continue to follow with pain management. Assessment & Plan (12/22/2018 1:51 PM CDT): Prior FMS diagnosis in 1999. Has failed or has side effects to Cymbalta, Lyrica, Amitriptyline, and gabapentin. Currently follows with [facility] management ([facility] in [place]. Currently treated with oxycodone and OxyContin as it gives some relief of her FMS. Reports generalized pain, fatigue, and difficulty sleeping. Continue to follow with pain management. 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 Overview (03/18/2019): Labs (12/22/18): negative, [id number] neg AVISE (12/22/18): negative Hepatitis negative: 12/2018 Quantiferon negative: 01/2019 Xray Lt hand (12/22/18): mild/mod OA Xray Rt hand (12/22/18): mild/mod OA Xray Lt foot (12/22/18): 1st MTP OA, plantar and calcaneal entheospathy Xray Rt foot (12/22/18): mild 1st MTP OA Xray SI jts (11/02/18): negative Xray L-spine (11/02/18): mild L2-3 and L4-5 degenerative changes MRI L-spine (11/10/18): very mild lumbar degenerative changes CXR negative: 07/2018 MRI SI joints (01/19/19): Mild sacroiliac joint osteoarthritis with scattered mild subchondral marrow edema. No osseous erosion, joint effusion, or evidence of ankylosis. Mild osteoarthritis of both hips. Mild bilateral greater trochanteric bursitis US R hand/wrist (01/06/19): Mild synovial thickening at the wrist. Very mild 4th MCP synovial thickening on examination which will have to be correlated clinically. Moderate 4th compartment effusion. US L foot/ankle (01/07/19): Grade 2 effusion of the 3rd MTP. These findings will have to be correlated clinically. - MRI with marrow edema + IBD = spondyloarthropathy (TNF?) Assessment & Plan (03/10/2023 11:31 AM CDT): Moderate cdai. Mild synovitis with tenderness on exam. C/o constant pain in the fingers however is not worse with palpation. Stopped simponi aria IV due to continued colitis flares and was switched to Xeljanz 10mg BID per GI with good control of colitis but no significant relief of joint complaints. Stopped MTX in 02/2022 without any worsening joint complaints suggesting it was not providing much relief. Again discussed LEF vs SSZ and provided handouts today however she defers additional medications at this time but will think about it. Continue Xeljanz 10mg BID per GI. Advised to call or move up appt if she would want to start SSZ or LEF before her next visit. Follow up in 6 months. Sooner if needed. Of note: if she defers treatment options for her inflammatory arthritis, she states she may cancel her f/u appt and be seen as needed as we are not currently prescribing any meds/treatment. Assessment & Plan (09/09/2022 11:21 AM CDT): Moderate cdai. Mild synovitis with tenderness mainly in the bilateral wrists. C/o constant pain in the fingers however is not worse with palpation. Stopped simponi aria IV due to continued colitis flares and was switched to Xeljanz 10mg BID per GI with good control of colitis but on significant relief of joint complaints. Stopped MTX last visit (02/2022) without any worsening joint complaints suggesting it was not providing much relief. Discussed LEF vs SSZ however she defers additional medications at this time and prefers to try dietary changes for now. Continue Xeljanz 10mg BID per GI. Recent labs reviewed with patient. Follow up in 6 months. Sooner if needed. Assessment & Plan (03/11/2022 10:16 AM CDT): Low cdai. Stopped simponi aria IV due to continued colitis flares and was switched to Xeljanz 10mg BID per GI with good control of colitis as well as joint pain initially however has been having more colitis symptoms. Tolerating MTX but unsure of benefit and prefers to stop at this time. Will monitor for worsening peripheral joint complaints with stopping MTX. If joint pain worsens, consider restarting MTX vs LEF vs SSZ. Continue Xeljanz 10mg BID per GI. Recent labs reviewed with patient. Follow up in 6 months. Sooner if needed. Assessment & Plan (11/13/2021 11:53 AM CDT): Moderate cdai. Stopped simponi aria IV due to continued colitis flares and was switched to Xeljanz 10mg BID per GI with good control of colitis as well as joint pain initially however has been having more colitis symptoms. Repeat labs/stool sample from 05/2021 suggested active UC so had repeat sigmoidoscopy that showed a single ulcer that was felt to be unrelated to active UC and GI feels UC is currently well controlled. Tolerating MTX but continues to c/o pain in her hands and worsening stiffness lasting several hours now. Denies any changes with increased MTX dose so will defer increasing at this time and await GI decision on tx for UC. If GI lowers xeljanz from 10mg BID to once daily, then will monitor for worsening joint complaints. Continue MTX 15mg weekly and folic acid 1mg daily. Continue Xeljanz 10mg BID per GI. Recent labs reviewed with patient. Follow up in 3 months. Sooner if needed. Seen with Dr. Gilliam. Assessment & Plan (07/11/2021 12:25 PM HAND BOOTMAKER): Moderate cdai. Stopped simponi aria IV due to continued colitis flares and was switched to Xeljanz 10mg BID per GI with good control of colitis as well as joint pain initially however has been having more colitis symptoms. Repeat labs/stool sample suggests active UC and is going to discuss tx options with GI next month. Likely her joint pain may be residual to active UC. Tolerating MTX but continues to c/o pain in her hands and worsening stiffness lasting several hours now. Denies any changes with increased dose so will defer increasing at this time and await GI decision on tx for UC as this will likely improve her joint complaints as well. Continue MTX 15mg weekly and folic acid 1mg daily. Continue Xeljanz 10mg BID per GI. Routine labs today. Follow up in 3 months. Sooner if needed. Assessment & Plan (06/05/2021 12:27 PM HAND BOOTMAKER): Moderate cdai. Stopped simponi aria IV due to continued colitis flares and was switched to Xeljanz 10mg BID per GI with good control of colitis as well as joint pain initially however has been having more colitis symptoms and is having repeat labs and stool samples to assess activity. Likely some of her joint pain may be residual to active UC. Tolerating MTX but continues to c/o pain in her hands and worsening stiffness lasting several hours now. She is wanting to consider increasing the dose. Will increase MTX 15mg weekly. Continue folic acid 1mg daily. Continue Xeljanz 10mg BID per GI. Reviewed recent labs per GI. Follow up in 1 month. Sooner if needed. Assessment & Plan (03/06/2021 10:03 AM CDT): Moderate cdai. Stopped simponi aria IV due to continued colitis flares and was switched to Xeljanz 10mg BID per GI with good control of colitis as well as joint pain. Improvement of pain in her low back/hips and minimal improvement in her hands since starting MTX. Denies any s/e. Continue MTX 10mg weekly and folic acid 1mg daily. Continue Xeljanz 10mg BID per GI. Reviewed recent labs per GI. Follow up in 3 months. Sooner if needed. Assessment & Plan (01/24/2021 2:52 PM CDT): Moderate cdai. Stopped simponi aria IV due to continued colitis flares and was switched to Xeljanz 10mg BID per GI with good control of colitis as well as joint pain. Recently having increased pain in her hands and low back/hips. Discussed options of MTX vs SSZ as combination therapy for her arthritis. C/o worsening low back and R hip pain lately. May return to pain management for spinal injections as she noted benefit in the past. Will start MTX 10mg weekly and folic acid 1mg daily. Patient advised of the side effects of the medication, including but not limited to increased risk of infection, GI upset, increased LFTs, mouth sores, rash, diarrhea, and/or blood count abnormalities. Continue Xeljanz 10mg BID per GI. Will check routine labs next visit. Follow up in 1 month. Sooner if needed. Assessment & Plan (09/20/2020 9:32 AM CDT): Moderate cdai. Persistent synovitis without much tenderness. Recent colonoscopy indicated active colitis and GI is wanting to start Stelara. Patient notes worsening joint complaints with colitis flares. Simpnoi aria is only benefiting arthritis and not colitis so will stop simponi aria and start Stelara for IBD per GI as it has indications for both IBD and spondyloarthropathy. Next Simponi aria is due 10/12/20 so will cancel this and she can start Stelara at that time if approved. If GI can control her ulcerative colitis, then likely joint symptoms will improve. If UC is controlled but continues to have worsening joint complaints, then may consider addition of oral csDMARD in the future. Routine labs today. Follow up in 3 months. Sooner if needed. Assessment & Plan (06/07/2020 9:27 AM HAND BOOTMAKER): Moderate cdai. Recent worsening of synovitis and tenderness. Patient reports colitis flare due to stress and running out of GI medications and attributes increased joint complaints to this. Was doing well overall with simponi aria and was noting improvement of overall joint stiffness and mobility prior to flare. Continue Simponi aria IV. Plan on f/u with GI for evaluation of colitis flare. If GI can control her ulcerative colitis, then likely joint symptoms will improve. If UC is controlled but continues to have worsening joint complaints, then may consider addition of oral csDMARD in the future. Routine labs today. Follow up in 3 months. Sooner if needed. Assessment & Plan (03/08/2020 12:53 PM CDT): Moderate cdai. Synovitis and tenderness improved since starting Simponi aria IV. Notes improvement of overall joint stiffness and mobility as well. Discussed addition of an oral conventional DMARD for continued peripheral symptoms however patient defers at this time. Continue Simponi aria IV and give this more time to take effect. Routine labs today. Follow up in 3 months. Sooner if needed. Assessment & Plan (11/30/2019 12:45 PM CDT): High cdai. Several swollen and tender joints noted on peripheral exam today. Had increased synovitis noted on previous exam which appears to have worsened. Overall, feels some benefit with humira but feels it is not working as well as it used to. Getting lumbar spinal corticosteroid injections per pain management next week so will defer kenalog IM today. Will stop humira due to loss of benefit. Start approval of simponi aria IV. Patient given an informational handout about the medication. Routine labs today. Follow up in 2 months. Sooner if needed. Assessment & Plan (08/31/2019 10:17 AM CDT): Moderate cdai. Several swollen and tender joints noted on peripheral exam today. Overall, patient feels symptoms are improved since starting humira and recognizes multiple causes of her chronic pain. Offered kenalog IM today due to increased disease activity, however patient defers at this time. Continue humria 40mg SQ [id number]. Routine labs today. Follow up in 3 months. Sooner if needed. 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 Started humira 02/18/19 but unsure of benefit. Reports improvement of pain in bilateral hands, however continues to have some synovitis. Biggest complaint remains low back/ R SI joint pain which is likely a combination of her SpA and degenerative changes. Reports benefit with BEENA per pain management. Reports right internal groin pain and recommend patient follow with ortho as previous x-ray revealed mild R hip OA. Overall, I feel that humira is providing some benefit. Will continue humira 40mg SQ [id number] and give this more time to take effect. If no improvement noted next visit, will consider a different TNF-inhibitor such as cimzia. Routine labs today. Follow up in 2 months. Sooner if needed. Seen with Dr. Gilliam. Assessment & Plan (03/18/2019 10:57 AM CDT): High cdai. Started humira 02/18/19. Several swollen joints with some tenderness noted on exam today. Continues to note pain in her low back/SI joints. Had 2 lumbar spine BEENA with about 50% improvement. May be getting a 3rd injection soon. Continue humira 40mg SQ [id number] and give this more time to take effect. Recommend following with podiatry regarding bilateral foot pain. Routine labs today. Flu shot today. Follow up in 3 months. Sooner if needed. Assessment & Plan (02/04/2019 1:01 PM CDT): MRI SI joints (01/19/19): Mild sacroiliac joint osteoarthritis with scattered mild subchondral marrow edema. No osseous erosion, joint effusion, or evidence of ankylosis. Mild osteoarthritis of both hips. Mild bilateral greater trochanteric bursitis US R hand/wrist (01/06/19): Mild synovial thickening at the wrist. Very mild 4th MCP synovial thickening on examination which will have to be correlated clinically. Moderate 4th compartment effusion. US L foot/ankle (01/07/19): Grade 2 effusion of the 3rd MTP. These findings will have to be correlated clinically. Serologies were unremarkable. Radiographs revealed left foot enthesophytes and OA in the bilateral hands, feet, and lumbar spine. Continues to have swelling across several peripheral joints and tenderness of her bilateral SI joints on exam today. Hx of ulcerative colitis. 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 Will start approval of humira 40mg SQ [id number]. Patient advised of the side effects of the medication, including but not limited to increase risk of infection, rash, injection site reaction. Patient given informational handouts about humira and spondyloarthritis. Likely that her pain is a combination of an inflammatory arthritis, FM, and degenerative changes of the spine. Discussed that it is okay to get a lumbar spine BEENA as she has history of a bulging disc with tear. Also recommend she ask her pcp for referral to a neurologist as she was told she may have neuropathy. Follow up in 1 month. Sooner if needed. Seen with Dr. Gilliam. Assessment & Plan (12/22/2018 1:57 PM CDT): Patient presents with a prior diagnosis of FMS and ulcerative colitis. For the past 2 years complaining of aching pain in her wrists, hips, low back/SI joints, and ankles. Hx of recent pain in her left foot/ankle and has undergone 2 different surgeries without benefit. Notes morning stiffness lasts a few hours. Recent x-rays of her SI joints were normal and MRI of the lumbar spine showed very mild degenerative changes. Swelling without tenderness noted in a few peripheral joints on exam today. Lumbar spine and bilateral SI joints are tender. Symptoms and exam are suspicious for a spondyloarthropathy related to her hx of ulcerative colitis. Will order appropriate serologies, radiographs, and a right hand/wrist and left foot/ankle US to further evaluate. Follow up in 2 weeks. Sooner if needed. Seen with Dr. Gilliam. Ulcerative colitis without complications 019 Assessment & Plan (03/10/2023 11:17 AM CDT): Currently well controlled with Xeljanz 10mg daily per GI. Assessment & Plan (09/09/2022 11:17 AM CDT): Most recent sigmoidoscopy showed a single ulcer but GI felt it was not active colitis. Taking benefiber and miralax with some benefit. Remains on Xeljanz 10mg BID with good control of her UC per GI. Assessment & Plan (03/11/2022 10:14 AM CDT): Recent sigmoidoscopy showed a single ulcer but they felt it was not active colitis. Taking benefiber and miralax with some benefit. Remains on Xeljanz 10mg BID but doing stool testing again to further evaluated disease activity. Depending on results, GI may consider changing her biologic. Assessment & Plan (11/13/2021 9:45 AM CDT): Recent sigmoidoscopy showed a single ulcer but they felt it was not active colitis. Started on benefiber and miralax with benefit. Remains on Xeljanz 10mg BID. GI is waiting on results of fecal calprotectin before considering changing treatment/dosing. Assessment & Plan (07/11/2021 12:22 PM HAND BOOTMAKER): Last colonoscopy showed active colitis per GI. Stopped simponi aria and started Xeljanz 10mg BID 09/2020 with good symptom relief initially. Noticing more GI symptoms so had repeat labs and stool samples that came back suggesting active UC so has f/u with GI next month to discuss tx options. Assessment & Plan (06/05/2021 12:28 PM HAND BOOTMAKER): Last colonoscopy showed active colitis per GI. Stopped simponi aria and started Xeljanz 10mg BID 09/2020 with good symptom relief initially. Noticing more GI symptoms so having repeat labs and stool samples but still waiting on results before they make any treatment adjustments. Assessment & Plan (03/06/2021 10:05 AM CDT): Last colonoscopy showed active colitis per GI. Stopped simponi aria and started Xeljanz 10mg BID 09/2020 with good symptom relief. Having testing per GI to determine effectiveness and if doing well they may reduce Xeljanz 5mg BID. Assessment & Plan (01/24/2021 2:51 PM CDT): Last colonoscopy showed active colitis per GI. Stopped simponi aria and started Xeljanz 10mg BID 09/2020 with good symptom relief. Having testing per GI to determine effectiveness and if doing well they may reduce Xeljanz 5mg BID. Assessment & Plan (09/20/2020 9:28 AM CDT): Had colonoscopy per GI recently showing active colitis. Xeljanz denied by insurance. GI wanting to start Stelara for IBD so will stop simponi aria. Assessment & Plan (06/07/2020 9:23 AM HAND BOOTMAKER): Followed with GI Dr. Junior Cheek. Has not established with new provider since hers left. Treated with mercaptopurine and mesalamine suppository but has ran out of these medications. Noticing flare of colitis with bloody stools. Patient states she will be following up with GI. Assessment & Plan (03/08/2020 12:46 PM CDT): Followed with LETTY Cheek. Has not established with new provider since hers left as her symptoms are stable. Treated with mercaptopurine and mesalamine suppository. Assessment & Plan (11/30/2019 12:40 PM CDT): Follows with LETTY Cheek. Will be establishing with new provider at the same location as current provider has left. Treated with mercaptopurine and mesalamine suppository. Assessment & Plan (08/31/2019 10:13 AM CDT): Follows with LETTY Cheek. Will be establishing with new provider at the same location as current provider has left. Treated with mercaptopurine and mesalamine suppository. Assessment & Plan (06/17/2019 10:24 AM HAND BOOTMAKER): Follows with LETTY Cheek. Will be establishing with new provider at the same location as current provider has left. Treated with mercaptopurine and mesalamine suppository. Assessment & Plan (03/18/2019 10:17 AM CDT): Follows with LETTY Cheek. Will be establishing with new provider at the same location as current provider has left. Treated with mercaptopurine and mesalamine suppository. Assessment & Plan (02/04/2019 12:35 PM CDT): Follows with LETTY Cheek. Will be establishing with new provider at the same location as current provider has left. Treated with mercaptopurine and mesalamine suppository. Assessment & Plan (12/22/2018 2:01 PM CDT): Follows with LETTY Cheek. Will be establishing with new provider at the same location as current provider has left. Treated with mercaptopurine and mesalamine suppository. 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 Answer Date Recorded Getting School Help Needed Not on file 05/06 Comments Unknown Sex and Gender Information Value Date Recorded Sex Assigned at Not on file Legal Sex Female 5:10 PM CDT Gender Identity Not on file Sexual Orientation Not on file Obstetrics History Last Filed Vital Signs Vital Sign Reading Time Taken Comments Blood Pressure 132/86 03/10/2023 9:21 AM CDT Pulse 68 03/10/2023 9:21 AM CDT Temperature 36.3 C (97.3 F) 07/11/2021 9:56 AM HAND BOOTMAKER Respiratory Rate - - Oxygen Saturation 98% 03/10/2023 9:21 AM CDT Inhaled Oxygen Concentration - - Weight 58.9 kg (129 lb 12.8 oz) 03/10/2023 9:21 AM CDT Height 160 cm (5' 3) 03/10/2023 9:21 AM CDT Body Mass Index 22.99 03/10/2023 9:21 AM CDT Plan of Treatment Health Maintenance Due Date Last Done Comments Colon Cancer Screening-Colonoscopy 1960 Depression Screening 1958 Fall Risk Assessment 1960 Osteoporosis Screening-Bone Density Scan 1960 DTaP/Tdap/Td Vaccine (1 - Tdap) 1969 Hepatitis B Screening 1976 Pneumococcal vaccine 65+ (3 of 3 - PCV20 or PCV21) 10/09/2016 10/10/2011, 10/10/2011 Well Visit 65+ 07/19/2023 Breast Cancer Screening-Mammogram 09/06/2023 023, 09/05/2022 Influenza Vaccine (#1) 2025 0, 03/18/2019, 04/05/2013 Hepatitis C Screening Completed 12/22/2018 Zoster Vaccine Completed 02/21/2021, 09/14/2020 Procedures Procedure Name Priority Date/Time Associated Diagnosis Comments HEPATITIS C ANTIBODY Routine 12/22/2018 10:24 AM CDT from Last 3 Months or Most Recently Relevant to Health Maintenance Results * Hepatitis C antibody (12/22/2018 10:24 AM CDT) Hep C Ab NON-REACT ARVIND NON-REACT ARVIND [facility] SIGNAL TO CUT-OFF 0.02 <1.00 [facility] Comment: HCV antibody was non-reactive. There is no laboratory evidence of HCV infection. In most cases, no further action is required. However, if recent HCV exposure is suspected, a test for HCV RNA (test code 95121) is suggested. For additional information please refer to http://education.Book&Table/faq/IAJ09j7 (This link is being provided for informational/ educational purposes only.) 12/22/2018 10:2 4 AM CDT 12/22/2018 10:25 AM CDT Narrative [facility] - 12/24/2018 6:14 PM CDT FASTING:NO FASTING: NO Resulting Agency Comment Performing Organization Information: Site ID: [id number] Name: [facility] Address: [id number] [id number] Director: Jose Mcgraw D.O., MPH Mis [facility]ER[facility] ORDERAB[facility] Final Result [facility] from Last 3 Months or Most Recently Relevant to Health Maintenance Insurance [facility] 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
--- OUTSIDE RECORDS SUMMARY | 2025-02-08 09:20 | XMS_ITS | Clinical Summary ---
Author Organization [address] [address] Address [address] [place] [address] Care Team Providers Care Lead Shop Operator Name Role Phone Antonieta Cazares MD Primary Care Provider [phone] Allergies No known active allergies Medications oxyCODONE (OxyCONTIN) 20 mg Controlled Release 12 hour crush resistant tablet Take 20 mg by mouth every 12 hours. Active oxyCODONE (ROXICODONE) 10 mg tabletIndications :Ulcerative proctitis with complication (CMS/HCC),Fibromy algia Take 1 Tablet (10 mg) by mouth every 8 hours as needed for Pain, Moderate. Max Daily Amount: 30 mg 90 Tablet 07/02/2021 Active morphine (AVINza) 30 mg Extended Release 24 hour capsule Take 30 mg by mouth daily. Active peg 3350-electrolytes (GOLYTELY) 236-22.74-6.74 -5.86 gram Recon Soln Take 1 Each (4,000 mL) by mouth one time for 1 dose. 4000 mL 03/05/2024 Active upadacitinib (Rinvoq) 15 mg Tablet Sustained Release 24HRIndications:U lcerative proctitis with complication (CMS/HCC) Take 15 mg by mouth daily. 90 Tablet 3 06/21/2024 Active doxycycline hyclate (VIBRAMYCIN) 100 mg tablet Take 1 Tablet (100 mg) by mouth 2 times daily. 20 Tablet 08/10/2024 Active busPIRone (BUSPAR) 7.5 mg Tablet One tablet Daily 30 Tablet 09/20/2024 Active Active Problems Problem Noted Date Diagnosed Date Opioid use disorder 01/01/2023 Inflammatory arthritis 02/21/2021 Spondyloarthritis 04/18/2020 Neurodermatitis 01/14/2020 Fibromyalgia 05/28/2018 DEXTER (generalized anxiety disorder) 05/28/2018 Chronic insomnia 05/28/2018 Tarsal tunnel syndrome 05/28/2018 Ulcerative proctitis with complication 9 Resolved Problems Problem Noted Date Diagnosed Date Resolved Date Spondyloarthritis 07/08/2019 04/18/2020 Encounters Date Type Department Care Team Description 02/01/2025 10:30 AM CDT Clinical Support [facility] [address] [place] [address] Eleanor Longoria MD Schmidt, Suzzanne Faye, LCSW DEXTER (generalized anxiety disorder) (Primary Dx); Situational mixed anxiety and depressive disorder; Reaction to chronic stress; Depressive disorder 02/01/2025 External Device Data ST[facility] ABSTRACTION Provider, Abstract 01/25/2025 External Device Data STL ABSTRACTION Provider, Abstract 01/11/2025 10:30 AM CDT Clinical Support [place] [id number] [place] [address] Nadeen Boyd LCSW DEXTER (generalized anxiety disorder) (Primary Dx); Situational mixed anxiety and depressive disorder; Reaction to chronic stress; Depressive disorder; Low self esteem; Grief; Phase of life problem 12/22/2024 External Device Data STL ABSTRACTION Provider, Abstract 12/21/2024 10:30 AM CDT Clinical Support [facility] [address] [place] [address] Antonieta Cazares MD Schmidt, Suzzanne Faye, LCSW Depressive disorder (Primary Dx); Situational mixed anxiety and depressive disorder; DEXTER (generalized anxiety disorder); Reaction to chronic stress; Grief; Low self esteem 12/21/2024 External Device Data STL ABSTRACTION Provider, Abstract 12/10/2024 Results Follow-Up [facility] [place] [address] [place] [address] Lexi Hudson, FORM SETTER CALPROTECTIN, FECAL 12/01/2024 External Device Data STL ABSTRACTION Provider, Abstract 12/01/2024 External Device Data STL ABSTRACTION Provider, Abstract 11/30/2024 External Device Data STL ABSTRACTION Provider, Abstract 11/24/2024 10:30 AM CDT Clinical Support [facility] [place] [address] [place] [address] Eleanor Longoria MD Schmidt, Nadeen [place], FITNESS SALES CONSULTANT Situational mixed anxiety and depressive disorder (Primary Dx); DEXTER (generalized anxiety disorder); Reaction to chronic stress; Grief 11/15/2024 10:00 AM CDT Office Visit [facility] [place] [address] [place] [address] Lexi Hudson, MISSY Ulcerative proctitis with complication (CMS/HCC) (Primary Dx); Other constipation; Fatigue, unspecified type from Last 3 Months Immunizations Immunization Administration Dates Next Due ([employer]) COVID-19 VACCINE - EMERGENCY USE AUTHORIZATION, AD26,COV2S(PF) 0.5 ML IM SUSP 07/21/2020 ([employer]X Systems)(12 YR UP) COVID-19 VACCINE - EMERGENCY USE AUTHORIZATION, MRNA, [id number](PF) 30 MCG/0.3 ML IM SUSP 05/04/2021 (PNEUMOVAX 23)(50 YRS UP) PN EUMOCOCCAL POLYSACCHARIDE (PPV23) 0.5 ML, IM 10/10/2011 (PREVNAR 20)(6 WKS UP) PNEUM OCOCCAL CONJUGATE VACCINE 20-VALENT (PCV20), POLYSACCHARIDE [id number] CONJUGATE, ADJUVANT 0.5 ML (PF) IM 03/04/2024 (SHINGRIX)(50 YRS UP) ZOSTER VACCINE RECOMBINANT, 0.5 ML, IM 02/21/2021,09/14/2020 INFLUENZA VACCINE HIGH DOSE TRIVALENT SPLIT VIRUS, (65 YR UP), 0.5ML (PF), IM 03/04/2024 Influenza Seasonal Unspecified Formulation IM ,03/18/2019 Influenza Vaccine High Dose 65+ Yrs IM 0 Pneumococcal Polysaccharide Vacc 23-tereso IM SCHIP 10/10/2011 Pneumococcal conjugate, unspecified formulation 10/10/2011 Zoster Vaccine Live SQ 02/21/2021,09/14/2020 Family History Medical History Relation Name Comments High Cholesterol Father Hypertension Father High Cholesterol Mother Relation Name Status Comments Father Alive Mother Alive Social History Tobacco Use Types Packs/Day Years Used Date Smoking Tobacco: Former Cigarettes Smokeless Tobacco: Never Tobacco Cessation:Counseling Given: Not Answered Alcohol Use Standard Drinks/Week Comments No 0 (1 standard drink = 0.6 oz pur e alcohol) Feeling Safe Answer Date Recorded Are you in a relationship wi th someone who hurts you emotionally and/or physically? No 03/22/2024 Comments No Sex and Gender Information Value Date Recorded Sex Assigned at Not on file Legal Sex Female 9:02 AM REACTOR TECHNICIAN Gender Identity Not on file Sexual Orientation Not on file Last Filed Vital Signs Vital Sign Reading Time Taken Comments Blood Pressure 138/85 11/15/2024 10:04 AM CDT Pulse 68 11/15/2024 10:04 AM CDT Temperature 36.8 C (98.3 F) 11/15/2024 10:04 AM CDT Respiratory Rate 18 11/15/2024 10:04 AM CDT Oxygen Saturation 93% 11/15/2024 10:04 AM CDT Inhaled Oxygen Concentration - - Weight 56.5 kg (124 lb 9.6 oz) 11/15/2024 10:04 AM CDT Height 160 cm (5' 3) 11/15/2024 10:04 AM CDT Body Mass Index 22.07 11/15/2024 10:04 AM CDT Plan of Treatment Upcoming Encounters Date Type Department Care Team (Late st Contact Info) Description 03/01/2025 10:30 AM CDT Clinical Support [facility] [place] [id number] [facility] [address] [place] [address] Nadeen Boyd, FITNESS SALES CONSULTANT [address] [facility] [address] [place] [address] 03/02/2025 9:45 AM CDT Appointment [facility] [place] [address] [place] [address] Antonieta Cazares MD [address] [facility] [address] [place] [address] 03/02/2025 10:50 AM CDT Appointment [facility] [place] [address] [place] [address] Antonieta Cazares MD [address] [place] [phone] 03/08/2025 10:15 AM CDT Office Visit [facility] - [address] [place] [address] Antonieta Cazares MD [address] [place] [address] 05/23/2025 10:30 AM REACTOR TECHNICIAN Office Visit [facility] [place] [address] [place] [address] Eleanor Longoria MD [address] [place] [address] [place] [address] Health Maintenance Due Date Last Done Comments FIT/ DNA Q 3 YEARS (AUTO ORDER) 1976 FIT/FOBT Q 1 YEAR (AUTO ORDER) 1976 DTAP/TDAP/TD VACCINES (1 - Tdap) 1977 FIT-DNA Q 3 years 07/19/2003 FIT/FOBT Q 1 year 07/19/2003 OSTEOPOROSIS SCREENING 07/19/2023 BREAST CANCER SCREENING 09/06/2023 09/05/2022 Medicare Advantage (ND) Preventative Visit/Annual Wellness Visit 05/19/2024 03/04/2024, 05/28/2018 INFLUENZA VACCINE (#1) 2024 , 03/04/2024, 03/08/2020, Additional history exists COVID-19 Vaccine (2024-2 6 season) 2025 11/13/2021, 05/04/2021, 07/21/2020 FLEX SIG/CT COLONOGRAPHY Q 5 YEARS (AUTO ORDER) 09/10/2026 09/10/2021, 09/10/2021 Flex Sig/CT Colonography Q 5 years 09/10/20262021, 09/10/2021 RSV VACCINE (60+ or ) (1 - 1-dose 75+ series) 2033 COLORECTAL CANCER SCREENING (AUTO ORDER) 03/22/2034 03/22/2024, 03/22/2024, 09/11/2020, Additional history exists COLORECTAL SCREENING 03/22/2034 03/22/2024, 03/22/2024, 09/11/2020, Additional history exists Colorectal Cancer Screening (AUTO ORDER) 03/22/2034 Colorectal Cancer Screening 03/22/2034 ZOSTER VACCINE Completed 02/21/2021, 10/2020, 02/21/2021, Additional history exists PNEUMOCOCCAL VACCINE 50+ YEARS Completed 1 , 10/10/2011, 10/10/2011, Additional history exists Procedures Procedure Name Priority Date/Time Associated Diagnosis Comments CALPROTECTIN, FECAL Routine 12/02/2024 3 :29 PM CDT Ulcerative proctitis with complication (CMS/HCC) COLONOSCOPY REPORT 03/22/2024 11 :34 AM REACTOR TECHNICIAN MAMMO 3D CK SCREEN BILAT W OR WO CAD Routine 09/05/2022 9:12 AM CDT Breast cancer screening by mammogram FLEXIBLE SIGMOIDOSCOPY REPORT 09/10/2021 4:06 PM CDT from Last 3 Months or Most Recently Relevant to Health Maintenance Results * CALPROTECTIN, FECAL (12/02/2024 3:29 PM CDT) CALPROTECTIN, FECAL 22 mcg/g [facility], Comment: Reference Range: <50 Normal 50-120 Borderline >120 Elevated Calprotectin in Crohn's disease and ulcerative colitis can be five to several thousand times above the reference population (50 mcg/g or less). Levels are usually 50 mcg/g or less in healthy patients and with irritable bowel syndrome. Repeat testing in 4-6 weeks is suggested for borderline values. Test Performed at: [facility], [address] [place] [address] Sahara Sharma MD,PhD,STAN Stool STOOL SPECIMEN / Unknown 12/02/2024 3:29 PM CDT 12/03/2024 4:04 AM CDT Lexi Hudson FORM SETTER BODY FLUIDS AND STOOLS Final Result [facility] [phone] [facility], [address] [place] [address] * COLONOSCOPY REPORT (03/22/2024 11:34 AM REACTOR TECHNICIAN) Narrative Procedure Note Eleanor Longoria MD - 03/22/2024 11:34 AM CST [facility] Endoscopy Patient Name: Taylor Nunez Procedure Date: 03/22/2024 Date of : 1960 Attending MD: Eleanor Longoria MD, Procedure: Colonoscopy Indications: Disease activity assessment of left-sided chronic ulcerative colitis Providers: Eleanor Longoria MD Referring MD: Antonieta Cazares MD Medicines: Monitored Anesthesia Care Complications: No immediate complications. Procedure: Informed consent was obtained for the procedure, including moderate sedation after risks were discussed. Based on the pre-procedure assessment, including review of the patient's medical history, medications, allergies, and review of systems, the patient was deemed to be an appropriate candidate for sedation. A timeout was performed. Continuous ECG monitoring, pulse oximetry, blood pressure monitoring, and direct observation were performed. The was introduced through the anus and advanced to the cecum, identified by appendiceal orifice and ileocecal valve. The colonoscopy was performed without difficulty. The patient tolerated the procedure well. The quality of the bowel preparation was adequate. Findings: The perianal and digital rectal examinations were normal. Normal mucosa was found in the entire colon. Biopsies for histology were taken with a cold forceps from the right colon, left colon, transverse colon and rectum for evaluation of microscopic colitis. Localized pseudopolyps were found in the rectum. The polyp was removed with a cold snare. Resection and retrieval were complete. Impression: - Normal mucosa in the entire examined colon. Biopsied. - Pseudopolyps in the rectum. Resected and retrieved. Recommendation: - Discharge patient to home. - Resume previous diet. - Continue Rinvq but reduce the dose to 30 mg. - Await pathology results. - Repeat colonoscopy in 5 years for surveillance. Procedure Code(s): --- Professional --- 57134, Colonoscopy, flexible; with removal of tumor(s), polyp(s), or other lesion(s) by snare technique 16434, 59, Colonoscopy, flexible; with biopsy, single or multiple CPT copyright 2020 [employer]. All rights reserved. The codes documented in this report are preliminary and upon plant maintenance engineer review may be revised to meet current compliance requirements. Eleanor Longoria MD 03/22/2024 11:33:48 AM This report has been signed electronically. Number of Addenda: [phone] [place] [address] us Eleanor Longoria MD GI PROCEDURE ORDERABLES Final Re sult * MAMMO SCRN BILAT 3D CK W OR WO CAD (09/05/2022 9:12 AM CDT) Anatomical Region Laterality Modality Breast Bilateral Mammography 09/05/2022 9:12 AM CDT Impressions 09/06/2022 4:48 PM CDT IMPRESSION: No suspicious findings to suggest malignancy in either breast. Annual mammography is recommended. OVERALL FINAL ASSESSMENT: BI-RADS CATEGORY 1: Negative Narrative 09/06/2022 4:48 PM CDT BILATERAL SCREENING DIGITAL MAMMOGRAM WITH 3D TOMOSYNTHESIS AND CAD DATE: 09/05/2022 9:12 AM HISTORY: Routine screening. DICTATION LOCATION: [facility] TECHNIQUE: Full-field digital craniocaudal and mediolateral oblique projections of both breasts were obtained. Low-dose full-field digital breast tomosynthesis examination was performed with 2D and 3D acquisitions. Examination is read in conjunction with computer aided detection. COMPARISON: 06/19/2016 and older BREAST COMPOSITION: The breasts are heterogeneously dense, which may obscure small masses. FINDINGS: No suspicious mass, suspicious microcalcifications, or architectural distortion is identified in either breast. Computer aided detection was used in the interpretation of this examination. Procedure Note Asha Troy MD - 09/06/2022 BILATERAL SCREENING DIGITAL MAMMOGRAM WITH 3D TOMOSYNTHESIS AND CAD DATE: 09/05/2022 9:12 AM HISTORY: Routine screening. DICTATION LOCATION: [facility] TECHNIQUE: Full-field digital craniocaudal and mediolateral oblique projections of both breasts were obtained. Low-dose full-field digital breast tomosynthesis examination was performed with 2D and 3D acquisitions. Examination is read in conjunction with computer aided detection. COMPARISON: 06/19/2016 and older BREAST COMPOSITION: The breasts are heterogeneously dense, which may obscure small masses. FINDINGS: No suspicious mass, suspicious microcalcifications, or architectural distortion is identified in either breast. Computer aided detection was used in the interpretation of this examination. IMPRESSION: No suspicious findings to suggest malignancy in either breast. Annual mammography is recommended. OVERALL FINAL ASSESSMENT: BI-RADS CATEGORY 1: Negative Naomie Lara Barbosa PA-C MAMMO ORDERABLES Final R esult * FLEXIBLE SIGMOIDOSCOPY REPORT (09/10/2021 4:06 PM CDT) Narrative Procedure Note Eleanor Longoria MD - 09/10/2021 4:05 PM CDT [facility] Endoscopy Patient Name: Taylor Nunez Procedure Date: 09/10/2021 Date of : 1960 Attending MD: Eleanor Longoria MD Procedure: Flexible Sigmoidoscopy Indications: Disease activity assessment of chronic ulcerative proctosigmoiditis Providers: Eleanor Longoria MD Referring MD: Antonieta Cazares MD Medicines: Monitored Anesthesia Care Complications: No immediate complications. Procedure: Informed consent was obtained for the procedure, including moderate sedation after risks were discussed. Based on the pre-procedure assessment, including review of the patient's medical history, medications, allergies, and review of systems, the patient was deemed to be an appropriate candidate for sedation. A timeout was performed. Continuous ECG monitoring, pulse oximetry, blood pressure monitoring, and direct observation were performed. The Colonoscope was introduced through the anus and advanced to the sigmoid colon. The flexible sigmoidoscopy was accomplished without difficulty. The patient tolerated the procedure well. The quality of the bowel preparation was poor. Findings: The perianal and digital rectal examinations were normal. Copious quantities of solid stool was found in the rectum and in the sigmoid colon, precluding visualization. A single (solitary) three mm ulcer was found in the distal rectum. No bleeding was present. Biopsies were taken with a cold forceps for histology. Impression: - Preparation of the colon was poor. - Stool in the rectum and in the sigmoid colon. - A single (solitary) ulcer in the distal rectum with central pit and heaped up margins. Biopsied. It appeared more like solitary rectal ulcer syndrome. - Limited mucosal examination was normal and devoid of indlammation. Recommendation: - Discharge patient to home. - Resume previous diet. - Continue Xaljanz 10 mg BID for now. - Miralax 1 capful (17 grams) in 8 ounces of water PO BID. - Use Benefiber two teaspoons PO daily. - Return to my office in 6 months. Procedure Code(s): --- Professional --- 41605, Sigmoidoscopy, flexible; with biopsy, single or multiple CPT copyright 2020 [employer]. All rights reserved. The codes documented in this report are preliminary and upon plant maintenance engineer review may be revised to meet current compliance requirements. Eleanor Longoria MD 09/10/2021 4:04:56 PM This report has been signed electronically. Number of Addenda: [id number], [place] [address] Eleanor Longoria MD GI PROCEDURE ORDERABLES Final Re sult from Last 3 Months or Most Recently Relevant to Health Maintenance Insurance AETNA PPO MCR RX AETNA Medicare Part D AETNA PPO [facility] Care Teams Lead Shop Operator Relationship Specialty Start Date End Date Antonieta Cazares MD [address] [address] PCP - General Internal Medicine 05/28/18
--- NOTE | 2025-02-08 09:40 | NEURO_ITS ---
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 # Right Ulnar Neuropathy across the elbow. # No Carpal Tunnel Syndrome. Nerve Conduction Studies ?Stim Site NR Peak (ms) P-T Amp (?V) Site1 Site2 Delta-P (ms) Dist (cm) Mayo (m/s) Left Median Anti Sensory (2-3nd Digit) Wrist ? 3.6 23.3 Wrist 2-3nd Digit 3.6 14.0 39 Wrist ? 3.5 24.4 Wrist 2-3nd Digit 3.6 14.0 39 Right Median Anti Sensory (2-3nd Digit) Wrist ? 3.2 23.8 Wrist 2-3nd Digit 3.2 14.0 44 Wrist ? 4.0 23.3 Wrist 2-3nd Digit 3.2 14.0 44 Left Radial Anti Sensory (Base 1st Digit) Wrist ? 2.0 21.1 Wrist Base 1st Digit 2.0 0.0 Right Radial Anti Sensory (Base 1st Digit) Wrist ? 2.1 22.2 Wrist Base 1st Digit 2.1 0.0 Left Ulnar Anti Sensory (5th Digit) Wrist ? 2.7 26.7 Wrist 5th Digit 2.7 14.0 52 Right Ulnar Anti Sensory (5th Digit) Wrist ? 2.5 23.8 Wrist 5th Digit 2.5 14.0 56 ?Stim Site NR Onset (ms) O-P Amp (mV) Site1 Site2 Delta-0 (ms) Dist (cm) Mayo (m/s) Left Median Motor (Abd Poll Brev) Wrist ? 3.3 2.9 Elbow Wrist 4.7 27.0 57 Elbow ? 8.0 1.8 Right Median Motor (Abd Poll Brev) Wrist ? 3.7 1.4 Elbow Wrist 4.2 26.0 62 Elbow ? 7.9 3.5 Left Ulnar Motor (Abd Dig Minimi) Wrist ? 2.5 7.6 A Elbow Wrist 4.8 27.0 56 A Elbow ? 7.3 5.7 B Elbow Wrist 3.6 20.0 56 B Elbow ? 6.1 7.0 Right Ulnar Motor (Abd Dig Minimi) Wrist ? 3.0 5.7 A Elbow Wrist 5.4 27.0 50 A Elbow ? 8.4 3.5 B Elbow Wrist 3.7 19.0 51 B Elbow ? 6.7 3.7 F Wave Studies ?NR F-Lat (ms) L-R F-Lat (ms) Left Median (Mrkrs) (Abd Poll Brev) ? 27.81 1.09 Right Median (Mrkrs) (Abd Poll Brev) ? 28.91 1.09 Left Ulnar (Mrkrs) (Abd Dig Min) ? 25.86 1.48 Right Ulnar (Mrkrs) (Abd Dig Min) ? 27.34 1.48 Electromyography ?Side Muscle Nerve Root Ins Act Fibs Amp Dur Recrt Comment Right 1stDorInt Ulnar C8-T1 Nml Nml Nml Nml Nml Right Ext Indicis Radial (Post Int) C7-8 Nml Nml Nml Nml Nml Right Ext Digitorum Radial (Post Int) C7-8 Nml Nml Nml Nml Nml Right BrachioRad Radial C5-6 Nml Nml Nml Nml Nml Right PronatorTeres Median C6-7 Nml Nml Nml Nml Nml Right Abd Poll Brev Median C8-T1 Nml Nml Nml Nml Nml Right ABD Dig Min Ulnar C8-T1 Nml Nml Nml Nml Nml Right FlexPolLong Median (Ant Int) C7-8 Nml Nml Nml Nml Nml Right Abd Poll Long Radial (Post Int) C7-8 Nml Nml Nml Nml Nml Left 1stDorInt Ulnar C8-T1 Nml Nml Nml Nml Nml Left Ext Indicis Radial (Post Int) C7-8 Nml Nml Nml Nml Nml Left Ext Digitorum Radial (Post Int) C7-8 Nml Nml Nml Nml Nml Left BrachioRad Radial C5-6 Nml Nml Nml Nml Nml Left PronatorTeres Median C6-7 Nml Nml Nml Nml Nml Left Abd Poll Brev Median C8-T1 Nml Nml Nml Nml Nml Left ABD Dig Min Ulnar C8-T1 Nml Nml Nml Nml Nml Left FlexPolLong Median (Ant Int) C7-8 Nml Nml Nml Nml Nml Left Abd Poll Long Radial (Post Int) C7-8 Nml Nml Nml Nml Nml
== END 2025-02-08 08:51 | disposition home or self-care (01) ==
PROVIDERS: PCP Physician Assistant; Visit Provider Physician Assistant
DX: G56.21 Lesion of ulnar nerve, right upper limb (principal); E11.9 Type 2 diabetes mellitus without complications
CPT/HCPCS: 95886; 95911